=== PATIENT | female | born 1980 | race Caucasian/White ===

== ENCOUNTER 2018-03-03 21:21 | Emergency (ER) | payer OTHER ==
[~2018-03-03] VITALS: Ht 149.9 cm; Wt 77.1 kg
[2018-03-03 21:22] VITALS: Ht 149.9 cm; Wt 77.1 kg
[2018-03-04 00:53] VITALS: BP 125/87
== END 2018-03-04 00:53 | disposition home or self-care (01) ==
LOC: ED 21:21
DX: S62.304A Unspecified fracture of fourth metacarpal bone, right hand, initial encounter for closed fracture (principal); S60.511A Abrasion of right hand, initial encounter; W31.9XXA Contact with unspecified machinery, initial encounter; Y93.89 Activity, other specified; Y92.89 Other specified places as the place of occurrence of the external cause; Y99.8 Other external cause status
CPT/HCPCS: 90715; J1885

== ENCOUNTER 2018-04-30 20:00 | Emergency (ER) | payer OTHER ==
[~2018-04-30] VITALS: Ht 149.9 cm; Wt 80.7 kg
[2018-04-30 20:11] VITALS: BP 149/95; Ht 149.9 cm; Wt 80.7 kg
== END 2018-04-30 22:29 | disposition home or self-care (01) ==
LOC: ED 20:00
DX: S62.394A Other fracture of fourth metacarpal bone, right hand, initial encounter for closed fracture (principal); X58.XXXA Exposure to other specified factors, initial encounter; Y93.89 Activity, other specified; Y92.89 Other specified places as the place of occurrence of the external cause; Y99.8 Other external cause status
CPT/HCPCS: J1885